=== PATIENT | female | born 1950 | race Caucasian/White ===

== ENCOUNTER 2017-08-29 12:50 | Outpatient (CLI) | payer MEDICARE, MEDICAID | END 2017-08-29 12:51 | disposition home or self-care (01) | LOC: CP 12:50 | PROVIDERS: ATTEND Internal Medicine | DX: J44.9 Chronic obstructive pulmonary disease, unspecified (principal); G47.33 Obstructive sleep apnea (adult) (pediatric) | CPT/HCPCS: 94010; 94727; 94729 ==

== ENCOUNTER 2018-01-21 17:32 | Observation (INO) | payer MEDICARE, MEDICAID ==
[2018-01-21 18:21] LABS: #Eosinphils 0.1 thou/uL (0.0-0.7); #Lymphocytes 1.2 thou/uL (1.20-3.40); #Monocytes 1.1 thou/uL (0.11-0.59); #Neutrophils 8.5 thou/uL (1.40-6.50); %Basophils 0.1 % (0.0-1.0); %Eosinophils 1.3 % (0.0-10.0); %Lymphocytes 11.2 % (21.0-51.0); %Monocytes 10.2 % (0.0-10.0); %Neutrophils 77.3 % (42.0-75.0); Hemoglobin 13.6 g/dL (12.0-16.0); Mean Corpuscular HGB CONC 34.1 g/dL (32.0-36.0); Mean Corpuscular Hemoglobin 30.3 pg (27.0-31.0); Mean Corpuscular Volume 88.8 fl (81.0-99.0); Mean Platelet Volume 9.5 fL (7.4-10.4); Platelet Count 110 thou/uL (130-400); RBC Distribution Width 13.5 % (11.5-14.5); Red Blood Cell (RBC) Count 4.49 mill/uL (4.20-5.40)
[2018-01-21 18:33] LABS: Bilirubin Small (Negative); Blood, Urine Large (Negative); Clarity TURBID (Clear); Glucose, Urine (Dipstick) 100 mg/dL (Negative); Leukocyte Large (Negative); Nitrite Positive (Negative); Protein, Urine (Dipstick) 300 mg/dL (Neg-Trace); Specific Gravity, Urine 1.014 (1.002-1.036); pH, Urine 6.5 (5.0-9.0)
[2018-01-21 18:36] LABS: Bacteria/HPF 4+ HPF (None Seen); Squamous Epithelial 0-3 HPF (0-3)
[2018-01-21 18:37] LABS: Lactic Acid 1.7 mmol/L (0.5-2.2); Yeast-AUWi Flag 281.8 (0-25.0)
[2018-01-21 18:43] LABS: Hyaline Casts/LPF 0-3 HYALINE CAST LPF (0-3 Hyaline); Manual Microscopic Reviewed? No Path Casts Seen; RBC/HPF GREATER THAN 50-TNTC HPF (0-3); Yeast-All Forms None Seen HPF (None Seen)
[2018-01-21] MEDS ORDERED: Acetaminophen 500 MG TAB ONE (18:43)
[2018-01-21 18:44] LABS: ALT (SGPT) 16 U/L (8-55); AST (SGOT) 16 U/L (5-34); Alkaline Phosphatase 108 U/L (40-150); Anion Gap 14 mmol/L (10-20); BUN (Urea Nitrogen) 12 mg/dL (9.8-20.1); Bilirubin, Total 1.1 mg/dL (0.2-1.2); CK (CPK) 36 U/L (29-168); Calc. Creatinine Clearance 0 mL/min (70-130); Calcium 9.5 mg/dL (7.8-10.44); Carbon Dioxide 26 mmol/L (23-31); Chloride 99 mmol/L (98-107); Estimated GFR-MDRD 55; Globulin 3.9 g/dL (2.4-3.5); Glucose 217 mg/dL (80-115); Potassium 3.5 mmol/L (3.5-5.1); Protein, Total 7.9 g/dL (6.0-8.3); Sodium 135 mmol/L (136-145)
[2018-01-21 18:48] LABS: CKMB 0.6 ng/mL (0-6.6); Troponin I Less than 0.010 ng/mL (< 0.028)
--- NOTE | 2018-01-21 19:11 | RAD ---
RADIOGRAPH CHEST 1 VIEW: 01/21/18 HISTORY: 67-year-old female with syncope and dizziness for three days. FINDINGS: There are no air space densities, pulmonary edema, pneumothorax, or cardiomegaly. The lateral costop hrenic angles are sharp. IMPRESSION: No acute cardiopulmonary findings. kirstin [] POS: [facility]
[2018-01-21] MEDS ORDERED: Acetaminophen 325 MG TAB PO PRN (20:33)
[2018-01-21] MEDS ORDERED: Ondansetron HCl/PF 4 MG/2 ML Vial IVP PRN (20:33)
[2018-01-21] MEDS ORDERED: Ondansetron ODT 4 MG TAB SL PRN (20:33)
[2018-01-21 21:01] VITALS: BMI 38.0
--- NOTE | 2018-01-21 21:11 | CT ---
CT OF THE ABDOMEN AND PELVIS WITHOUT IV CONTRAST: 01/21/18 COMPARISON: Prior exam dated 02/02/17. FINDINGS: There is mild bibasilar atelectasis. There is cirrhotic morphology of the liver with changes of rito l hypertension. There are shotty appearing lymph nodes within the upper abdomen. There is slight prominence of the renal collecting system bilaterally, much improved from the prior e xam. There is a Richards catheter within a decompressed bladder. The bladder wall appears thickened but stable in appearance to the comparison. There is a mild amount of retained stool within the colon. No drainable fluid collection is evident. There is some persistent perinephric stranding seen surrounding the kidneys within the retroperitoneu m. No drainable fluid collection is evident. There are scattered vascular calcifications. No definite acute osseous abnormality is evident. IMPRESSION: 1. Stable examination to a comparison dated 02/02/17. The only significant change seen is the exte nt of the dilatation involving both renal collecting systems. There is some mild residual pyelocaliec tasis when compared to the prior. 2. Thickening of the bladder likely reflects changes of chronic bladder outlet obstruction. 3. Richards catheter. 4. Nonspecific mild perinephric stranding within the retroperitoneum is stable to prior examinat ion. 5. Cirrhosis with findings of portal hypertension. 6. No free fluid is evident. POS: BH
[2018-01-21] MEDS ORDERED: Dextrose 5% in Water 1,000 ML IV PRN (23:36)
[2018-01-21] MEDS ORDERED: HumaLOG 300 UNITS/3 ML VIAL SC PRN (23:36)
[2018-01-21] MEDS ORDERED: Dextrose 50% Abboject 50 ML SYRINGE SLOW IVP PRN (23:36)
[2018-01-21] MEDS ORDERED: HYDROcodone/Acetaminophen 10/325 mg Tablet PO PRN (23:36)
[2018-01-21] MEDS ORDERED: Meclizine HCl 25 MG TAB PO PRN (23:36)
[2018-01-21] MEDS ORDERED: Enoxaparin Sodium 40 MG/0.4 ML SYRINGE SC SCH (23:36)
[2018-01-21] MEDS ORDERED: HYDROcodone/Acetaminophen 5/325 mg Tablet PO PRN (23:36)
[2018-01-22] MEDS: Sodium Chloride 0.9% 1,000 ML IV SCH ×2 (00:47→16:23)
[2018-01-22] MEDS: Insulin Regular 300 UNITS/3 ML VIAL SC PRN ×4 (00:48→22:32)
--- NOTE | 2018-01-22 01:25 | HP ---
DATE OF ADMISSION: 01/21/2018 PRIMARY CARE PHYSICIAN: Nabila Marley M.D. CHIEF COMPLAINT: Multiple issues. HISTORY OF PRESENT ILLNESS: Ms. Pereira is a 67-year-old severely obese white female with history of diabetes, uncontrolled; chronic urinary retention with chronic indwelling Richards catheter replaced by home care every month, last changed on 01/15/2018; hyperlipidemia; hypertension; diabetic neuropathy ; COPD or asthma and possible cirrhosis who presented to the emergency department with multiple compl aints. She has been having vertigo, which she has had chronically and does normally take meclizine for it. She also had cough and congestion for about a month and has subjective fevers where she feels the pil low warm after she is rolled over, but denies any sweats. She has had nausea without vomiting. Home care nurse came to change her catheter on 01/15/2018 and noticed that her urine was very thick a nd infected looking. Urine culture was apparently sent at that time and she was called in antibiotic s. However, she could not afford to pick up operator the Cipro and the fluconazole, so she did not take them. She continued to have problems, so presented to the emergency department for further evaluation. Urinalysis was significant for UTI, review of the past culture showed E. coli sensitive to most antib iotics and she was given 1-1/2 liters of normal saline, Tylenol and Rocephin. On arrival, her white count was upper end of normal. She was slightly tachycardic at 107 with a temperature of 101.4 and a blood pressure of 170/81. We were called for admission. Since arrival to the floor, she has been afebrile with a better heart rate. Blood pressure has been under better control. She denies any nausea or vomiting at present, no diarrhea, no constipation. N o other current complaints. PAST MEDICAL HISTORY: 1. Diabetes mellitus type 2, insulin dependent. 2. Chronic urinary retention. 3. Chronic indwelling Richards catheter and recurrent UTIs. 4. Hyperlipidemia. 5. Hypertension. 6. Diabetic neuropathy. 7. COPD/asthma. 8. Possible cirrhosis. 9. Vertigo. 10. Anxiety. 11. Depression. PAST SURGICAL HISTORY: 1. Tonsillectomy, adenoidectomy as a child. 2. Right eye mole removal circa 1966. 3. Bilateral tubal ligation. HOME MEDICATIONS: She takes, 1. Levemir 30 units subcutaneously q.a.m. or 35 units if sugars are "high." 2. Metformin 1000 mg p.o. b.i.d. 3. Quinapril 10 mg p.o. b.i.d. 4. Amitriptyline 25 mg p.o. at bedtime. 5. Celexa 40 mg daily. 6. Albuterol MDI p.r.n. 7. Glipizide 10 mg, she thinks once a day. 8. Cipro, she was recently prescribed; fluconazole, which she was recently prescribed, has not been taking either one. She is not sure if she is taking Actos still, says she has not taken her potassium chloride 20 twice a day, was taken off her atorvastatin, does not take her Symbicort anymore and stopped her Lyrica 200 mg daily because it was not helping. ALLERGIES: 1. PENICILLIN causes nausea and vomiting. 2. SULFA causes nausea and vomiting. 3. CODEINE, it was so long ago she cannot even remember. 4. IODINE caused her to have itching and swelling of her skin. FAMILY HISTORY: Negative for clotting or bleeding disorder, no immune dysfunction. SOCIAL HISTORY: Significant for tobacco, 3 to 4 cigarettes per day. She started smoking at the age of 12, so has smoked for 55 years and thinks she has averaged at least a pack a day over that time. She does not drink and does not use IV drugs. She lives alone, has family and home health care. REVIEW OF SYSTEMS: Ten-point review of systems was performed and was negative for all other systems except stated as per HPI. PHYSICAL EXAMINATION: VITAL SIGNS: Temperature on arrival to the ER was 101.4, now down to 99.3; pulse was 107, now down t o 91; blood pressure 151/87; respiratory rate 16; satting 97% to 98% on room air. GENERAL: She is awake. She is alert. She is oriented x3. She is a severely obese white female who is in zero distress. HEENT: Normocephalic, atraumatic. Pupils equal, reactive bilaterally, mucous membranes are moist. Teeth are in poor repair. NECK: Supple. She has no lymphadenopathy, no JVD, no thyromegaly. She has normal carotid upstrokes without bruits. LUNGS: Clear anteriorly and posteriorly. She has good air movement. Symmetrical chest excursion. There is no wheezing, no rales. She does have fine basilar crackles in both sides that clear with de ep inspiration. CARDIOVASCULAR: She is normocardic to slightly tachycardic, but regular. She has normal S1 and S2. She has a faint 2/6 systolic ejection murmur and no diastolic murmurs. ABDOMEN: Severely obese. I cannot palpate internal organs. She has no rebound, rigidity or guardin g. She has good bowel sounds in all 4 quadrants. EXTREMITIES: No cyanosis, no clubbing with 1+ edema just above the ankle. SKIN: Cool but well perfused. Capillary refill 2 to 3 seconds. NEUROLOGIC: Cranial nerves II-XII are grossly intact. She has no focal deficits and 5/5 strength. She has normal speech. MUSCULOSKELETAL: Normal to inspection. Large joints appear uninflamed. I did not palpate effusions . LABORATORY EVALUATION: Sodium 135, potassium 3.5, chloride 99, bicarbonate 26, BUN 12, creatinine 1. 00, glucose of 217. Liver function completely within normal limits. CBC showed a white count of 11,000 with normal diffe rential, hemoglobin 13.6, hematocrit 39.8 and platelet count is 110,000. A flu screen was negative. Urinalysis showed 4+ bacteria, greater than 50 white cells and red cells and positive nitrite. Microbiologic data, she has blood cultures x2 pending and urine culture from 01/15/2018 with E. coli that is resistant only to sulfa, ampicillin and sulbactam. ASSESSMENT AND PLAN: 1. Urinary tract infection: Escherichia coli recently cultured, I think after she had a catheter susie madden. We will transition her to IV ciprofloxacin 400 mg IV q.12 hours. She will get Rocephin in the ER. She will start this tomorrow. 2. Sepsis: She was febrile, tachycardic, presumed bacterial infection and low platelets, although I think the platelets may be related to her cirrhosis. She did meet criteria for sepsis. She got flu ids in the ER, will continue on antibiotics. 3. Diabetes mellitus type 2, insulin dependent, not controlled: Continue her Levemir and mild slidi ng scale correctional Humalog. We will resume metformin. I have not prescribed her glipizide or aimee glitazone until we know that what she takes and how much she takes of it. 4. History of hyperlipidemia: She says she has been taken off of her atorvastatin. 5. Hypertension: She takes quinapril 10 b.i.d., which we will continue. Watch blood pressure. 6. Diabetic neuropathy: She is complaining of pain now. She stopped her Lyrica because it "didn't help." We will have p.r.n. pain medicines available. 7. History of chronic obstructive pulmonary disease/asthma: She has albuterol MDI, but no long-acti ng medications. We will have albuterol MDI p.r.n. The patient does have low platelets. Her INR was not checked, but a CT scan of the abdomen and pelvi s did suggest possible cirrhosis. We will check her coagulation profile in the morning, platelets ar e already low, and if she does have sign of sepsis, may need hepatitis screening. We will order that for the morning as well.
[2018-01-22] MEDS: Guaifenesin DM 100-10/5 ML UDCUP PO PRN ×2 (02:35→20:39)
[2018-01-22 05:59] LABS: #Eosinphils 0.2 thou/uL (0.0-0.7); #Lymphocytes 1.2 thou/uL (1.20-3.40); #Monocytes 1.2 thou/uL (0.11-0.59); #Neutrophils 6.3 thou/uL (1.40-6.50); %Basophils 0.4 % (0.0-1.0); %Lymphocytes 13.2 % (21.0-51.0); %Monocytes 13.2 % (0.0-10.0); %Neutrophils 71.3 % (42.0-75.0); Hemoglobin 12.5 g/dL (12.0-16.0); Mean Corpuscular HGB CONC 33.3 g/dL (32.0-36.0); Mean Corpuscular Volume 90.3 fl (81.0-99.0); Mean Platelet Volume 9.3 fL (7.4-10.4); Platelet Count 93 thou/uL (130-400); RBC Distribution Width 13.5 % (11.5-14.5); Red Blood Cell (RBC) Count 4.17 mill/uL (4.20-5.40); White Blood Cell (WBC) Count 8.8 thou/uL (4.8-10.8)
[2018-01-22 06:07] LABS: Anion Gap 9 mmol/L (10-20); BUN (Urea Nitrogen) 10 mg/dL (9.8-20.1); Calc. Creatinine Clearance 100 mL/min (70-130); Calcium 8.8 mg/dL (7.8-10.44); Carbon Dioxide 25 mmol/L (23-31); Chloride 105 mmol/L (98-107); Estimated GFR-MDRD 65; Glucose 231 mg/dL (80-115); Potassium 3.3 mmol/L (3.5-5.1); Sodium 136 mmol/L (136-145)
[2018-01-22] MEDS ORDERED: Prevnar 13-Val Conj/PF 0.5 ML SYRINGE IM ONE (09:00)
[2018-01-22] MEDS ORDERED: FLU VACC TS2017-18 (>65YR) 0.5 ML SYRINGE IM ONE (09:00)
[2018-01-22] MEDS: metFORMIN 500 MG TAB PO SCH ×2 (09:18→16:24)
[2018-01-22] MEDS: Enoxaparin Sodium 40 MG/0.4 ML SYRINGE SC SCH (09:18)
[2018-01-22] MEDS: Famotidine 20 MG TAB PO SCH ×2 (09:18→20:38)
[2018-01-22] MEDS: Insulin Detemir 100 UNITS/ML 30 UNITS in Admixture Fee 1 EACH SC SCH (09:20)
[2018-01-22] MEDS: D5W IVPB SCH (13:28)
[2018-01-22] MEDS: CIPROFLOXACIN LACTATE IVPB SCH (13:28)
[2018-01-22] MEDS: ADMIXTURE FEE IVPB SCH (13:28)
--- NOTE | 2018-01-22 15:57 | PDOC.PN ---
- Subjective Encounter Start Date: 01/22/18 Encounter Start Time: 14:00 Patient is seen today, alert and oriented. No other Concer noted. She continuos to have Suprapubic pain. - Objective Resuscitation Status: Resuscitation Status FULL:Full Resuscitation MAR Reviewed: Yes Vital Signs & Weight: Vital Signs (12 hours) Temp Pulse Resp BP BP Pulse Ox 01/22/18 11:15 99.5 F 88 16 139/83 97 01/22/18 09:19 185/88 H 01/22/18 08:00 99.2 F 92 16 185/88 H 93 L I&O: 01/21/18 01/22/18 01/23/18 06:59 06:59 06:59 Intake Total 626 Output Total 1200 Balance -574 Result Diagrams: 01/22/18 05:40 01/22/18 05:40 Additional Labs: Accuchecks 01/22/18 01/22/18 01/21/18 10:42 06:29 23:58 POC Glucose 260 H 220 H 302 H Radiology Reviewed by me: Yes Phys Exam - Physical Examination HEENT: PERRLA, moist MMs Neck: no nodes, no JVD Respiratory: no wheezing, no rales Cardiovascular: RRR, no significant murmur Gastrointestinal: soft, non-tender Musculoskeletal: no edema, pulses present Neurological: non-focal, normal sensation Psychiatric: normal affect, A&O x 3 Skin: no rash, normal turgor Dx/Plan (1) Sepsis Code(s): A41.9 - SEPSIS, UNSPECIFIED ORGANISM Status: Acute Comment: Improving with IV antibiotics, urine Cultures Still pending, WBC improved. (2) Hypertension Code(s): I10 - ESSENTIAL (PRIMARY) HYPERTENSION Status: Acute Comment: stbale, Will contoinue on IV fluids. (3) Pyelonephritis Code(s): N12 - TUBULO-INTERSTITIAL NEPHRITIS, NOT SPCF ACUTE OR CHRONIC Status: Acute Comment: pt has indwelling catheter, Improving with IV Antibiotics, pending urine cultures. (4) Uncontrolled diabetes mellitus Code(s): E11.65 - TYPE 2 DIABETES MELLITUS WITH HYPERGLYCEMIA Status: Acute Comment: Continue with SSI, stable today. (5) Renal failure (ARF), acute on chronic Code(s): N17.9 - ACUTE KIDNEY FAILURE, UNSPECIFIED; N18.9 - CHRONIC KIDNEY DISEASE, UNSPECIFIED Status: Resolved Comment: Improved with IV fluids. (6) COPD (chronic obstructive pulmonary disease) Status: Acute Comment: No exacerbTION, prn nebs - Plan cont current plan of care, mckenna catheter, continue antibiotics, PT/OT, social services analyst, respiratory therapy, incentive spirometry, DVT proph w/lovenox * . - Discharge Day Encounter end time: 14:35 Review of Systems - Review of Systems Constitutional: chills Eyes: negative: Pain, Vision Change, Conjunctivae Inflammation, Eyelid Inflammation, Redness, Other ENT: negative: Ear Pain, Ear Discharge, Nose Pain, Nose Discharge, Nose Congestion, Mouth Pain, Mouth Swelling, Throat Pain, Throat Swelling, Other Respiratory: negative: Cough, Dry, Shortness of Breath, Hemoptysis, SOB with Excertion, Pleuritic Pain, Sputum, Wheezing Cardiovascular: negative: chest pain, palpitations, orthopnea, paroxysmal nocturnal dyspnea, edema, light headedness, other Gastrointestinal: Constipation. negative: Nausea, Vomiting, Abdominal Pain, Diarrhea, Melena, Hematochezia, Other Genitourinary: negative: Dysuria, Frequency, Incontinence, Hematuria, Retention , Other Neurological: negative: Weakness, Numbness, Incoordination, Change in Speech, Confusion, Seizures, Other - Medications/Allergies Allergies/Adverse Reactions: Allergies Allergy/AdvReac Type Severity Reaction Status Date / Time Penicillins Allergy Intermediate PUFFY/UPSET Verified 01/21/18 20:43 STOMACH Sulfa (Sulfonamide Allergy Intermediate NAUSEA/UPSET Verified 01/21/18 20:43 Antibiotics) STOMACH codeine Allergy ITCHING Verified 01/21/18 20:43 iodine Allergy ITCHING Verified 01/21/18 20:43 AND SWELLING Medications: Current Medications Acetaminophen (Tylenol) 650 mg PO Q4H PRN PRN Reason: Headache/Fever or Pain Hydrocodone Bitart/Acetaminophen (Harts 10/325) 1 tab PO Q4H PRN PRN Reason: Severe Pain (7-10) Hydrocodone Bitart/Acetaminophen (Harts 5/325) 1 tab PO Q4H PRN PRN Reason: Moderate Pain (4-6) Last Admin: 01/22/18 00:51 Dose: 1 tab Amitriptyline HCl (Elavil) 25 mg PO HS TOR Dextrose/Water (Dextrose 50%) 25 gm SLOW IVP PRN PRN PRN Reason: Hypoglycemia Enoxaparin Sodium (Lovenox) 40 mg SC 0900 [facility] Last Admin: 01/22/18 09:18 Dose: 40 mg Famotidine (Pepcid) 20 mg PO BID [facility] Last Admin: 01/22/18 09:18 Dose: 20 mg Glucagon (Glucagon) 1 mg IM PRN PRN PRN Reason: Hypoglycemia Guaifenesin/Dextromethorphan (Robitussin Dm) 15 ml PO Q4H PRN PRN Reason: Cough Last Admin: 01/22/18 02:35 Dose: 15 ml Dextrose/Water (D5w) 1,000 mls @ 0 mls/hr IV .Q0M PRN; As Directed PRN Reason: Hypoglycemia Insulin Detemir 30 units/ (Miscellaneous Medication) 0.3 mls @ 0 mls/hr SC QAM [facility] Last Admin: 01/22/18 09:20 Dose: 0.3 mls Sodium Chloride (Normal Saline 0.9%) 1,000 mls @ 75 mls/hr IV .[id number] [facility] Last Admin: 01/22/18 00:47 Dose: 1,000 mls Ciprofloxacin/Dextrose 400 mg/ (Miscellaneous Medication) 200 mls @ 200 mls/hr IVPB 0200,1400 [facility] Last Admin: 01/22/18 13:28 Dose: 200 mls Insulin Human Lispro (Humalog) 0 units SC .MILD SLIDING SCALE PRN PRN Reason: Mild Correctional Scale Insulin Human Regular (Humulin R) 0 units SC .BEDTIME SLIDING SC PRN PRN Reason: Bedtime Correctional Scale Last Admin: 01/22/18 11:38 Dose: 4 unit Meclizine HCl (Antivert) 25 mg PO Q8H PRN PRN Reason: Dizziness Last Admin: 01/22/18 00:50 Dose: 25 mg Metformin HCl (Glucophage) 1,000 mg PO BID-[facility] Last Admin: 01/22/18 09:18 Dose: 1,000 mg Quinapril HCl (Accupril) 10 mg PO BID [facility] Last Admin: 01/22/18 09:19 Dose: 10 mg Sodium Chloride (Flush - Normal Saline) 10 ml IVF Q12HR [facility] Sodium Chloride (Flush - Normal Saline) 10 ml IVF PRN PRN PRN Reason: Saline Flush
[2018-01-22] MEDS: Acetaminophen 325 MG TAB PO PRN ×2 (16:24→20:39)
[2018-01-22] MEDS ORDERED: Amitriptyline HCl 25 MG TAB PO SCH (21:00)
[2018-01-23] MEDS: ADMIXTURE FEE IVPB SCH (01:44)
[2018-01-23] MEDS: D5W IVPB SCH (01:44)
[2018-01-23] MEDS: CIPROFLOXACIN LACTATE IVPB SCH (01:44)
[2018-01-23] MEDS: Acetaminophen 325 MG TAB PO PRN ×2 (01:48→12:07)
[2018-01-23] MEDS: Sodium Chloride 0.9% 1,000 ML IV SCH (05:15)
[2018-01-23] MEDS: Insulin Regular 300 UNITS/3 ML VIAL SC PRN (06:40)
[2018-01-23] MEDS: metFORMIN 500 MG TAB PO SCH (08:32)
[2018-01-23] MEDS: Famotidine 20 MG TAB PO SCH (08:32)
[2018-01-23] MEDS: Enoxaparin Sodium 40 MG/0.4 ML SYRINGE SC SCH (08:33)
[2018-01-23] MEDS ORDERED: Oxybutynin 5 MG TAB PO PRN (09:40)
[2018-01-23] MEDS ORDERED: clonazePAM 0.5 MG TAB PO PRN (09:40)
[2018-01-23] MEDS: Insulin Detemir 100 UNITS/ML 30 UNITS in Admixture Fee 1 EACH SC SCH (09:45)
[2018-01-23 10:20] LABS: #Basophils 0.1 thou/uL (0.0-0.2); #Eosinphils 0.3 thou/uL (0.0-0.7); #Lymphocytes 0.9 thou/uL (1.20-3.40); #Monocytes 0.6 thou/uL (0.11-0.59); #Neutrophils 3.8 thou/uL (1.40-6.50); %Basophils 1.1 % (0.0-1.0); %Eosinophils 5.7 % (0.0-10.0); %Lymphocytes 16.7 % (21.0-51.0); %Monocytes 9.7 % (0.0-10.0); %Neutrophils 66.7 % (42.0-75.0); Hemoglobin 12.4 g/dL (12.0-16.0); Mean Corpuscular HGB CONC 33.9 g/dL (32.0-36.0); Mean Corpuscular Hemoglobin 30.7 pg (27.0-31.0); Mean Corpuscular Volume 90.4 fl (81.0-99.0); Mean Platelet Volume 9.4 fL (7.4-10.4); Platelet Count 92 thou/uL (130-400); RBC Distribution Width 13.4 % (11.5-14.5); Red Blood Cell (RBC) Count 4.04 mill/uL (4.20-5.40); White Blood Cell (WBC) Count 5.6 thou/uL (4.8-10.8)
[2018-01-23 11:42] VITALS: BP 180/80; TEMP 98.4
[2018-01-23] MEDS ORDERED: Mometasone/Formoterol 120 PUFF INHALER INH SCH (18:30)
[2018-01-23] MEDS ORDERED: Atorvastatin Calcium 20 MG TAB PO SCH (21:00)
[2018-01-23] MEDS ORDERED: Non-Formulary Item 1 EACH (Budesonide-Formoterol [Symbicort 160-4.5] 1 PUFF) INH SCH (21:00)
[2018-01-24] MEDS ORDERED: Non-Formulary Item 1 EACH (Fluticasone Propionate [Flonase Allergy Relief] 1 SPRAY) EA NARE SCH (09:00)
[2018-01-24] MEDS ORDERED: Fluticasone Propionate Nasal Spray 16 gm Bottle NASAL SCH (09:00)
[2018-01-24] MEDS ORDERED: Citalopram 20 MG TAB PO SCH (09:00)
--- NOTE | 2018-01-24 11:57 | EKG ---
Test Reason : Blood Pressure : / mmHG Vent. Rate : 098 BPM Atrial Rate : 098 BPM P-R Int : 150 ms QRS Dur : 088 ms QT Int : 390 ms P-R-T Axes : 037 -06 042 degrees QTc Int : 497 ms Normal sinus rhythm Possible Left atrial enlargement Prolonged QT Abnormal ECG Confirmed by SIMON Kearns, DANY ([id number]), editorial assistant LIVIER PRESTON ([id number] on 01/24/2018 11:56:16 AM Referred By: Confirmed By:DANY MONTES M.D.
--- NOTE | 2018-01-24 12:03 | DIS ---
DATE OF ADMISSION: 01/21/2018 DATE OF DISCHARGE: 01/23/2018 ADMITTING DIAGNOSIS: Acute pyelonephritis with indwelling catheter. DISCHARGE DIAGNOSIS: Acute pyelonephritis with indwelling catheter. SECONDARY DIAGNOSES: 1. Type 2 diabetes mellitus, insulin-dependent. 2. Chronic urinary retention. 3. Hyperlipidemia. 4. History of hypertension. 5. Diabetic neuropathy. 6. History of chronic obstructive pulmonary disease and asthma. HISTORY OF PRESENT ILLNESS AND HOSPITAL COURSE: In brief, this is a 67-year-old white female, morbid ly obese with a known history of type 2 diabetes mellitus and chronic urinary retention with indwelli ng catheter. She presented to the hospital as she was already diagnosed with UTI and she could not t [place] oral antibiotics and she decided to come to the hospital for further evaluation. The patient was seen and had elevated white count and was admitted for IV antibiotics. The patient showed good impr ovement with complete clearance of the urine culture did not show any persistent E. coli. Hydration has improved. The patient was closely monitored and was discharged home in stable condition with mary e antibiotic which she has been getting in the hospital. PHYSICAL EXAMINATION: VITAL SIGNS: Blood pressures are 169/91, heart rate is 81, respiratory rate is 18, saturation 98%. GENERAL: The patient is moderately built and moderately nourished, does not appear to be in acute di stress at this time. Alert and oriented x3. HEENT: Atraumatic, normocephalic. PERRLA. Extraocular movements are intact. Oral mucosa is pink a nd moist. CARDIOVASCULAR: S1, S2 normal. No murmurs, rubs or gallops. LUNGS: Bilateral air entry was equal. No wheezing, no crackles. ABDOMEN: Soft, nontender, no guarding, no rebound tenderness. Bowel sounds are normal. MUSCULOSKELETAL: No calf tenderness. No pedal edema. No joint tenderness, no joint swelling. SKIN: No cyanosis, no erythema, no rash, no pallor. NEUROLOGIC: Cranial nerve examination II-XII intact. No focal deficits were noted. DISCHARGE MEDICATIONS: Insulin 18 units subcutaneously b.i.d., pantoprazole 40 mg p.o. b.i.d., amitr iptyline 25 mg p.o. daily, atorvastatin 20 mg p.o. daily, budesonide, citalopram 40 mg p.o. daily, cl onazepam 0.5 mg p.o. daily, fluticasone, glipizide 10 mg p.o. daily, metformin 1000 mg p.o. b.i.d., o xybutynin. NEW MEDICATIONS: Quinapril changed to 20 mg twice a daily, Cipro 250 mg p.o. q.12 hours for 1 more w [place]. DISCHARGE INSTRUCTIONS: Continue activity as tolerated. Advised to follow up with primary care phys ician in 1-2 weeks. Advised to follow up with Urology in 2 weeks for the recurrent urinary tract inf ections. Continue diabetic diet. DISPOSITION: The patient is discharged home in stable condition. I spent 35 minutes with this patient.
== END 2018-01-23 14:51 | disposition home or self-care (01) ==
LOC: ERS 17:32 → 2SE 20:35 → INTOOBSV 20:35
PROVIDERS: ADMIT Internal Medicine; ATTEND Internal Medicine
DX: A41.9 Sepsis, unspecified organism (principal); N10 Acute pyelonephritis; R33.9 Retention of urine, unspecified; E11.40 Type 2 diabetes mellitus with diabetic neuropathy, unspecified; E78.5 Hyperlipidemia, unspecified; J44.9 Chronic obstructive pulmonary disease, unspecified; J45.909 Unspecified asthma, uncomplicated; I10 Essential (primary) hypertension; N39.0 Urinary tract infection, site not specified; B96.20 Unspecified Escherichia coli [E. coli] as the cause of diseases classified elsewhere; F32.9 Major depressive disorder, single episode, unspecified; F41.9 Anxiety disorder, unspecified; F17.210 Nicotine dependence, cigarettes, uncomplicated; Z88.0 Allergy status to penicillin; Z88.2 Allergy status to sulfonamides; Z88.5 Allergy status to narcotic agent; Z91.041 Radiographic dye allergy status; Z79.4 Long term (current) use of insulin; Z79.899 Other long term (current) drug therapy
CPT/HCPCS: 51702; 71045; 74176; 80048; 80053; 82550; 82553; 82962 ×3; 83605; 84484; 85025 ×3; 87040; 87077; 87086; 87186; 87804 ×2; 93005; 96372 ×2; 96374; 97139 ×2; 99285; 99406; G0378; 36415; 36416; 81003; 81015; 90471; 90670; 90682; 96361; A4216; G0008; G0009; J0696; J0744; J1650; J1815; Q2036

== ENCOUNTER 2018-02-17 20:24 | Emergency (ER) | payer MEDICARE, MEDICAID | END 2018-02-17 23:26 | disposition left against medical advice (07) | LOC: ERS 20:24 | DX: Z53.21 Procedure and treatment not carried out due to patient leaving prior to being seen by health care provider (principal) ==

== ENCOUNTER 2018-08-20 08:31 | Emergency (ER) | payer MEDICARE, MEDICAID ==
[2018-08-20 09:52] LABS: Bilirubin Negative (Negative); Blood, Urine Large (Negative); Clarity CLOUDY (Clear); Glucose, Urine (Dipstick) 100 mg/dL (Negative); Leukocyte Moderate (Negative); Nitrite Negative (Negative); Protein, Urine (Dipstick) 100 mg/dL (Neg-Trace); Specific Gravity, Urine 1.013 (1.002-1.036); Urobilinogen 0.2 mg/dL (0.2-1.0)
[2018-08-20 09:53] LABS: Bacteria/HPF None Seen HPF (None Seen); Hyaline Casts/LPF 0-3 HYALINE CAST LPF (0-3 Hyaline); Pathc Cast-AUWi Flag 0.29 (0-2.49); RBC/HPF 21-50 HPF (0-3); Squamous Epithelial None Seen HPF (0-3)
[2018-08-20 10:09] LABS: ALT (SGPT) 22 U/L (8-55); AST (SGOT) 19 U/L (5-34); Albumin 4.2 g/dL (3.4-4.8); Alkaline Phosphatase 87 U/L (40-150); Anion Gap 18 mmol/L (10-20); BUN (Urea Nitrogen) 24 mg/dL (9.8-20.1); Calc. Creatinine Clearance 0 mL/min (70-130); Calcium 9.3 mg/dL (7.8-10.44); Carbon Dioxide 20 mmol/L (23-31); Chloride 106 mmol/L (98-107); Estimated GFR-MDRD 40; Globulin 3.3 g/dL (2.4-3.5); Glucose 353 mg/dL (80-115); Hemoglobin 16.1 g/dL (12.0-16.0); Mean Corpuscular HGB CONC 33.9 g/dL (32.0-36.0); Mean Corpuscular Hemoglobin 31.2 pg (27.0-31.0); Mean Corpuscular Volume 91.9 fL (78.0-98.0); Mean Platelet Volume 10.8 fL (7.4-10.4); Platelet Count 90 thou/uL (130-400); Potassium 3.8 mmol/L (3.5-5.1); Protein, Total 7.5 g/dL (6.0-8.3); RBC Distribution Width 12.9 % (11.5-14.5); Red Blood Cell (RBC) Count 5.17 mill/uL (4.20-5.40); Sodium 140 mmol/L (136-145); White Blood Cell (WBC) Count 11.9 thou/uL (4.8-10.8)
[2018-08-20 10:17] LABS: #Basophils 0.1 thou/uL (0.0-0.2); #Eosinphils 0.1 thou/uL (0.0-0.7); #Lymphocytes 0.7 thou/uL (1.20-3.40); #Monocytes 0.5 thou/uL (0.11-0.59); #Neutrophils 10.6 thou/uL (1.40-6.50); %Basophils 0.4 % (0.0-1.0); %Eosinophils 0.4 % (0.0-10.0); %Lymphocytes 5.6 % (21.0-51.0); %Neutrophils 89.5 % (42.0-75.0); PLT Morphology Comment Appears Decreased; RBC Morphology Normal
== END 2018-08-20 11:43 | disposition home or self-care (01) ==
LOC: ERS 08:31
DX: N17.9 Acute kidney failure, unspecified (principal); E86.0 Dehydration; I10 Essential (primary) hypertension; E78.5 Hyperlipidemia, unspecified; E11.40 Type 2 diabetes mellitus with diabetic neuropathy, unspecified; J44.9 Chronic obstructive pulmonary disease, unspecified; F41.9 Anxiety disorder, unspecified; F17.210 Nicotine dependence, cigarettes, uncomplicated; Z79.899 Other long term (current) drug therapy; Z79.4 Long term (current) use of insulin
CPT/HCPCS: 51702; 80053; 81003; 81015; 85025; 87086; 93005; 96360; 96361

== ENCOUNTER 2019-01-13 04:12 | Emergency (ER) | payer MEDICARE, MEDICAID ==
[2019-01-13 04:58] LABS: Bilirubin Negative (Negative); Blood, Urine Large (Negative); Glucose, Urine (Dipstick) >=1000 mg/dL (Negative); Leukocyte Small (Negative); Nitrite Negative (Negative); Protein, Urine (Dipstick) 100 mg/dL (Neg-Trace); Urobilinogen 0.2 mg/dL (0.2-1.0); pH, Urine 7.5 (5.0-9.0)
[2019-01-13 05:01] LABS: Clarity Cloudy (Clear)
[2019-01-13 05:12] LABS: RBC/HPF GREATER THAN 50-TNTC HPF (0-3)
[2019-01-13 05:13] LABS: Bacteria/HPF 4+ HPF (None Seen); Squamous Epithelial 0-3 HPF (0-3); Trichomonas/HPF None Seen HPF (None Seen)
[2019-01-13 05:14] LABS: Hyaline Casts/LPF 0-3 HYALINE CAST LPF (0-3 Hyaline); Yeast-All Forms None Seen HPF (None Seen)
== END 2019-01-13 05:25 | disposition home or self-care (01) ==
LOC: ERS 04:12
DX: T83.098A Other mechanical complication of other urinary catheter, initial encounter (principal); I10 Essential (primary) hypertension; E11.40 Type 2 diabetes mellitus with diabetic neuropathy, unspecified; J44.9 Chronic obstructive pulmonary disease, unspecified; F41.9 Anxiety disorder, unspecified; F17.210 Nicotine dependence, cigarettes, uncomplicated
CPT/HCPCS: 51702; 81003; 81015

== ENCOUNTER 2019-02-20 12:08 | Emergency (ER) | payer MEDICARE, MEDICAID ==
[2019-02-20 13:45] LABS: Bilirubin Negative (Negative); Blood, Urine Moderate (Negative); Clarity CLOUDY (Clear); Glucose, Urine (Dipstick) >=1000 mg/dL (Negative); Leukocyte Moderate (Negative); Nitrite Negative (Negative); Protein, Urine (Dipstick) 100 mg/dL (Neg-Trace); Specific Gravity, Urine 1.015 (1.002-1.036); Urobilinogen 0.2 mg/dL (0.2-1.0); pH, Urine 5.5 (5.0-9.0)
[2019-02-20 13:47] LABS: Bacteria/HPF 1+ HPF (None Seen); Squamous Epithelial None Seen HPF (0-3)
[2019-02-20 13:48] LABS: Pathc Cast-AUWi Flag 3.26 (0-2.49); Yeast-AUWi Flag 117.1 (0-25.0)
[2019-02-20 14:07] LABS: Crystals/HPF 1+ AMORPH URATES HPF (Negative); Hyaline Casts/LPF 0-3 HYALINE CAST LPF (0-3 Hyaline); Yeast-All Forms 2+ HPF (None Seen)
[2019-02-20] MEDS ORDERED: Ondansetron ODT 4 MG TAB ONE (15:12)
[2019-02-20] MEDS ORDERED: Mag-Al 1200 mg/1200 mg/30 ML UDCUP ONE ×2 (15:13→15:19)
[2019-02-20] MEDS ORDERED: Lidocaine Viscous Sol 2% 15 ml UD Cup ONE ×2 (15:13→15:19)
[2019-02-20] MEDS ORDERED: Ondansetron PF 4 MG/2 ML Vial ONE (15:18)
== END 2019-02-20 15:10 | disposition home or self-care (01) ==
LOC: ERS 12:08
DX: T83.091A Other mechanical complication of indwelling urethral catheter, initial encounter (principal); R19.7 Diarrhea, unspecified; I10 Essential (primary) hypertension; E11.9 Type 2 diabetes mellitus without complications; E78.5 Hyperlipidemia, unspecified; J44.9 Chronic obstructive pulmonary disease, unspecified; F41.9 Anxiety disorder, unspecified; F17.210 Nicotine dependence, cigarettes, uncomplicated
CPT/HCPCS: 51702; 81003; 81015; 87086; J2405; Q0162

== ENCOUNTER 2019-09-30 07:44 | Outpatient (CLI) | payer MEDICARE, MEDICAID ==
--- NOTE | 2019-09-30 09:27 | ULT ---
TRANSABDOMINAL TRANSVAGINAL PELVIC ULTRASOUND: INDICATION: Vaginal bleeding. TECHNIQUE: Little scale, color Doppler images were obtained of the pelvis via transabdominal transvaginal approach . Due to patient discomfort and an inability for appropriate positioning, the exam detail is limited as reported by the corn lab technician. FINDINGS: The uterus measures approximately 8 x 4.1 x 5.3 cm. There is a heterogeneous mixed echogenicity mate rial filling the endometrial canal that is poorly discerned. The endometrial stripe measures approxim ately 2 cm. There is mild free fluid in the pelvis. There is a suspected Richards catheter within the bladder. The bladder is decompressed. The adnexa are not seen. IMPRESSION: 1. Thickening of the endometrial stripe is abnormal for a patient of this age. Findings may be rela patrice to hyperplasia, polyposis, or carcinoma. 2. Suspected Richards catheter within a decompressed bladder. POS: [facility]
== END 2019-09-30 07:45 | disposition home or self-care (01) ==
LOC: BICULT 07:44
PROVIDERS: ATTEND Nurse Practitioner Family
DX: N93.9 Abnormal uterine and vaginal bleeding, unspecified (principal); R93.89 Abnormal findings on diagnostic imaging of other specified body structures
CPT/HCPCS: 76856

== ENCOUNTER 2019-12-11 08:27 | Outpatient (CLI) | payer MEDICARE, MEDICAID ==
[2019-12-11] MEDS ORDERED: Iopamidol 370 76% 100 ML VIAL ONE (09:13)
--- NOTE | 2019-12-11 13:33 | CT ---
CT OF THE CHEST AND ABDOMEN AND PELVIS PERFORMED WITH CONTRAST ENHANCEMENT: HISTORY: Patient diagnosed with endometrial cancer 2 weeks ago. This is for staging. FINDINGS: There is an indistinct slightly ground-glass nodule measuring in the 6-7 mm range in the right upper lobe. There is also a tiny nodule in the left lower lobe measuring 4-5 mm. The thyroid gland is prominent, particularly the right lobe. There appear be small nodules present. This would be better investigated with ultrasound. Coronary calcifications are seen. No significan t mediastinal or hilar adenopathy. The distal esophagus shows some esophageal wall thickening. This may be on the basis of reflux. CT OF ABDOMEN PERFORMED WITH CONTRAST ENHANCEMENT: The liver has a nodular cirrhotic contour. It measures approximately 19 cm in length. The spleen me asures 16 cm. Pancreas appear unremarkable. Gallbladder is not identified. Right and left adrenal glands and right and left kidneys show no focal masses. A punctate calcificat ions is seen within the left kidney. This may be vascular in nature. There are some small gastrohep atic and periportal and pancreatic lymph nodes and also small aortocaval and left periaortic nodes. These all appear stable. No significant mesenteric lymphadenopathy. CT OF PELVIS PERFORMED WITH CONTRAST ENHANCEMENT: A Richards catheter is present within the bladder. Thickening in the bladder wall is again demonstrated with what appear to be bladder diverticulum present. There is no significant pelvic lymphadenopathy demonstrated. IMPRESSION: 1. Two small nonspecific pulmonary nodules, 1 within the right upper and 1 within the left lower lob e. Followup at 6 months would be recommended for reassessment. 2. Nodular cirrhotic-appearing liver with splenomegaly. This is a stable appearance as compared to a 01/21/2018 study. 3. Small nonspecific scattered gastrohepatic, periportal, periaortic, and aortocaval nodes all uncha nged in appearance since the previous exam. 4. Suggestion of some distal esophageal wall thickening. This may be on the basis of reflux. Endos copy is suggested as clinically indicated. 5. Bladder wall thickening similar to the previous study. Other incidental findings as noted above. POS: [facility]
== END 2019-12-11 08:28 | disposition home or self-care (01) ==
LOC: CT 08:27
PROVIDERS: ATTEND Obstetrics & Gynecology Gynecologic Oncology
DX: C54.1 Malignant neoplasm of endometrium (principal); R91.8 Other nonspecific abnormal finding of lung field; R16.1 Splenomegaly, not elsewhere classified; N32.89 Other specified disorders of bladder
CPT/HCPCS: 36415; 71260; 74177; 80053; 82105; 82565; 85610; Q9967